=== PATIENT | male | born 1940 | race Caucasian/White ===

== ENCOUNTER 2023-03-04 16:42 | Inpatient (IN) | payer MEDICARE, BC, SELFPAY ==
[2023-03-04] VITALS (13 sets, daily range): BP systolic 154–158; BP diastolic 84–91; PULSE 80–88; RESP 15–22; TEMP 36.4; O2SAT 96–100
--- NOTE | ~2023-03-04 | CT_ITS ---
EXAMINATION: CTA brain carotid DATE: 03/04/2023 21:43 INDICATION: Nuchal rigidity and headache TECHNIQUE: Computed tomographic angiography (CTA) of the head was performed without and with 100 mL O mnipaque-350 intravenous contrast. CTA of the neck was performed with intravenous contrast. The dose- length product was 1803.04 mGy-cm. Maximum intensity projection and volume rendered 3D-reconstruction s were created by the technologist on a separate workstation. Automated exposure control and iterativ e reconstruction technique were employed. COMPARISON: None. FINDINGS: HEAD CTA: There is no acute intraparenchymal hemorrhage. No evidence of mass lesion. No evidence of a cute infarction. There is mild periventricular and subcortical hypodensity probably related to small vessel ischemic disease. There is mild prominence of the sulci and ventricles related to cerebral atr ophy. Intracranial calcified cerebral atherosclerosis is noted. There are no extra-axial collections. There is no mass effect or midline shift. The orbits and soft tissues are unremarkable. The visualiz ed sinuses and mastoid air cells are well aerated. There is no significant stenosis of the basilar artery or posterior cerebral arteries. There is no si gnificant stenosis of the intracranial internal carotid arteries or the anterior or middle cerebral a rteries. The anterior communicating artery and posterior communicating arteries are normal. There is no aneurysm. NECK CTA: Small bilateral thyroid nodules measure up to 5 mm on the left. There is severe cervical sp ondylosis. The submandibular and parotid glands are symmetric. There is no lymphadenopathy. There are no masses identified. The airway is unremarkable. The superior mediastinum is unremarkable. There is 0% stenosis of the proximal right internal carotid artery relative to normal distal artery l umen diameter (NASCET criteria). There is 0% stenosis of the proximal left internal carotid artery re lative to normal distal artery lumen diameter. IMPRESSION: 1. No acute intracranial abnormality. Normal head CTA. 2. 0% stenosis of the proximal right internal carotid artery relative to normal distal artery lumen d iameter (NASCET criteria). 3. 0% stenosis of the proximal left internal carotid artery relative to normal distal artery lumen di ameter. Reviewed, dictated and finalized at location F. BALL GLOVE SHAPER IMPRESSION: 1. No acute intracranial abnormality. Normal head CTA. 2. 0% stenosis of the proximal right internal carotid artery relative to normal distal artery lumen diameter (NASCET criteria). 3. 0% stenosis of the proximal left internal carotid artery relative to normal distal artery lumen diameter.
--- NOTE | ~2023-03-04 | XR_ITS ---
EXAMINATION: XR chest 1V portable INDICATION: Neck pain TECHNIQUE: Portable AP chest at 2044 hours COMPARISON: None available FINDINGS: There are minimal airspace opacities of the lung bases. No pleural effusion or pneumothorax . The cardiomediastinal silhouette is normal. IMPRESSION: 1. Bibasilar airspace opacities, consistent with atelectasis versus pneumonia. Reviewed, dictated and finalized at location F. OSOFT APPLICATION DEVELOPER
--- NOTE | ~2023-03-04 | XR_ITS ---
XR chest 2V 03/08/2023 13:26 Indication: Cough Procedure: 2 view chest Comparison: 03/04/2023 Findings: Bibasilar atelectasis. Heart size normal. No focal pneumonia, edema or pneumothorax. Possib le small effusion. The lungs are hyperinflated which is consistent with, but not diagnostic of chroni c obstructive pulmonary disease. There are lower thoracic wedge compression deformities, likely chron ic. Impression: 1: Bibasilar atelectasis. 2: Possible small pleural effusion. Reviewed, dictated and finalized at location L. E DIRECTOR Impression: 1: Bibasilar atelectasis. 2: Possible small pleural effusion.
--- NOTE | ~2023-03-04 | CT_ITS ---
EXAMINATION: CT cervical spine wo con DATE: 03/04/2023 21:29 INDICATION: Nuchal rigidity, neck stiffness TECHNIQUE: Computed tomography (CT) of the cervical spine was performed without intravenous contrast. The dose-length product (DLP) was 234.01 mGy-cm. Automated exposure control and iterative reconstruc tion technique were employed. COMPARISON: None FINDINGS: There are 2 mm of retrolisthesis of C3 on C4 and C4 on C5. There is severe loss of interver tebral disc space height at C5-6 and C6-7. The cervical vertebral body heights are normal. There is a n age-indeterminate compression fracture of T1 with 30% loss of anterior vertebral body height. The o dontoid process is intact. 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 IMPRESSION: 1. Severe cervical spondylosis without acute findings of the cervical spine. 2. Age indeterminate T1 compression fracture. Reviewed, dictated and finalized at location F. ASTICS COACH OR INSTRUCTOR
--- NOTE | 2023-03-04 19:50 | ECG_ITS ---
Measurements Intervals [place] Rate: 79 P: -2 PA: 147 QRS: 14 QRSD: 98 T: 33 QT: 361 QTc: 414 Interpretive Statements SINUS RHYTHM INCOMPLETE RIGHT BUNDLE BRANCH BLOCK BASELINE ARTIFACT- I, II, III, AVR, AVL, AVF, V1-V2 BORDERLINE ECG NO PREVIOUS ECG AVAILABLE FOR COMPARISON Electronically Signed On 03-05-2023 8:11:14 BILLIARD TABLE REPAIRER by Declan Bahena D.O.
--- NOTE | 2023-03-04 19:56 | ED.GENADULT ---
HPI - General Adult General Chief complaint: Recheck/Abnormal Lab/Rx Stated complaint: sent from urgent care for 3 red flags in neck Time Seen by Provider: 03/04/23 19:31 Source: patient Limitations: no limitations History of Present Illness HPI narrative: Patient is an 82-year-old male presents to the emergency department sent by Urgent Care for neck pain and stiffness. Patient states approximately 3 days ago he developed a discomfort on the posterior left side of his neck with some slight stiffness that the following day became both sides of the back of his neck and has become progressively more stiff over the past few days. Patient denies any preceding injuries or history of this in the past. Patient originally thought that he maybe slept weird on it. Patient states that discomfort is worse with any movements of his head and neck especially flexion or rotation. Patient denies anyone emesis or symptoms to a. Patient took an aspirin this morning and has not taken any other medications. Patient notes that last night he developed a throbbing headache in the back of his head in which she points to the bilateral inferior aspects of the occipital bone that was described as throbbing, better this morning after taking the aspirin, no history of this in the past, denies getting headaches on a regular basis. Patient admits to some possible chills but denies any fever or chills his temperature at home. Patient admits to his significant other having a cough. Patient states that he had a minor cold that ended 1 week ago and when she was having runny nose congestion and cough. Patient denies family history of aneurysms. Patient denies eye pain, vision changes, difficulty swelling, dysphonia, ear pain, hearing changes, numbness, weakness, paresthesias, chest pain, difficulty breathing, abdominal pain, nausea vomiting, diarrhea, melena, hematochezia, urinary discomfort, use of blood thinners, jaw pain, history of blood clots, history of bleeding disorders. Patient denies any confusion. Related Data Allergies Allergy/AdvReac Type Severity Reaction Status Date / Time No Known Allergies Allergy Verified 03/04/23 16:44 Review of Systems Review of Systems: A 10 system review of systems was completed on the patient and is negative except for what is stated in the HPI. Nursing and ancillary documentation was reviewed. PMFSH Comments At time of signature, I have reviewed and agree with nursing past medical, surgical, social and family history unless otherwise noted. Please see the nursing chart for further information. There is no relevant family history pertinent to the presenting complaint. Exam Narrative: CONST: No acute distress. Well nourished. Patient is sitting upright with his neck in a neutral position and not wanting to move his neck. HENMT: Head is normocephalic and atraumatic. Moist mucous membranes. No posterior oropharynx erythema. Bilateral tympanic membranes are nonerythematous and without bulging. Bilateral ear canals are without erythema. No mastoid process tenderness palpation. EYES: No conjunctival icterus, injection, or pallor. PERRL. Extraocular motions intact. NECK: Nuchal rigidity is present, patient is unable to flex his neck without having significant increase in his pain. No carotid bruits on auscultation bilaterally. No palpable thyromegaly or thyroid tenderness to palpation. RESP: Able to speak in full sentences. Normal respiratory effort. CTAB. CARDIO: Regular rate. Regular rhythm. 2+ DP and radial pulses bilaterally. GI: Nondistended. No tenderness to palpation. Soft. : No CVA tenderness to palpation. SKIN: No rashes or lesions noted on exposed skin. NEURO: Oriented x3. Moves all extremities. Cranial nerves 2-12 intact. No focal neurological deficits. Sensation intact to light touch throughout all 4 extremities. Speech is clear and fluent. No nystagmus. Gaze is midline. Gait is stable. EXTREM/MSK/BACK: No
[2023-03-04 20:48] LABS: Basophils Absolute Auto 0.1 K/mm3 (0.0-0.1); Basophils Percent Auto 0.3 % (0.2-1.2); Eosinophils Absolute Auto 0.1 K/mm3 (0-0.3); Eosinophils Percent Auto 0.5 % (0-4.4); Hematocrit 51.2 % (42.0-52.0); Immature Granulocyte Absolute 0.16 K/mm3 (0.00-0.031); Immature Granulocyte Percent A 0.8 % (0-0.5); Lymphocytes Absolute Auto 1.25 K/mm3 (0.9-3.2); Lymphocytes Percent Auto 5.9 % (18.3-44.2); Mean Corpuscular HGB Conc 31.3 g/dl (32-36); Mean Corpuscular Hemoglobin 28.4 pg (26-34); Mean Corpuscular Volume 90.9 fl (80-100); Monocytes Percent Auto 9.6 % (2.6-8.5); Neutrophils Absolute Auto 17.6 K/mm3 (1.3-6.7); Neutrophils Percent Auto 82.9 % (45.5-73.1); Platelet Count Result 783 k/mm3 (150-375); Red Blood Count 5.63 M/mm3 (4.6-6.20); Red Cell Distribution Width 17.2 % (11.5-14.5); White Blood Count 21.2 K/mm3 (4.5-10.0)
[2023-03-04 20:58] LABS: Prothrombin Time 13.8 Seconds (11.1-14.7)
[2023-03-04 20:59] LABS: Alanine Aminotransferase 33 U/L (6-50); Albumin Level 4.3 g/dL (3.5-5.1); Alkaline Phosphatase 119 U/L (38-126); Anion Gap 11 mmol/L (8-16); Aspartate Amino Transferase 32 U/L (17-59); Blood Urea Nitrogen 22 mg/dL (9-20); Calcium 9.6 mg/dL (8.4-10.2); Carbon Dioxide 27 mmol/L (22-30); Chloride 101 mmol/L (98-107); Estimated CRCL calculation 59 ml/min; Estimated Glomerular Filt Rate > 60; Glucose 98 mg/dL (65-110); Partial Thromboplastin Time 48.4 SECONDS (22.3-36.8); Potassium 4.4 mmol/L (3.4-5.0); Sodium 139 mmol/L (137-145)
[2023-03-04 21:02] LABS: CRP 7.1 mg/dL (<1.0); Creatine Kinase 65 U/L (55-170)
[2023-03-04] MEDS: SODIUM CHLORIDE 0.9% IV 500 ML 999 ML IV CONT (21:08)
[2023-03-04 21:11] LABS: Troponin I < 0.012 ng/mL (0.000-0.034)
[2023-03-04 21:16] LABS: Procalcitonin 0.2 ng/mL
[2023-03-04 21:23] LABS: Influenza A QL RT-PCR Negative (Negative); Influenza B QL RT-PCR Negative (Negative); RSV RNA, RT-PCR Negative (Negative); SARS-CoV-2 RNA PCR Negative (Negative)
[2023-03-04 23:32] LABS: Appearance Urine Clear (Clear); Bilirubin Urine Negative (Negative); Blood Urine Negative (Negative); Color Urine Yellow (Yellow); Glucose Urine UA Negative (Negative); Ketones Urine 1+ mg/dL (Negative); Leukocyte Esterase Ur Negative LEU/UL (Negative); Nitrate Urine Negative (Negative); Protein Urine Negative (Negative); pH Urine 6.5 (5.0-9.0)
[2023-03-05] VITALS (19 sets, daily range): BP systolic 125–178; BP diastolic 68–87; PULSE 76–90; RESP 11–20; TEMP 36.3–36.6; O2SAT 96–99; BMI 20.1
[2023-03-05 00:01] LABS: Specific Grav Ur 1.065 (1.001-1.035)
[2023-03-05 00:20] LABS: Add Urine Microscopic? NO
[2023-03-05] MEDS: AMPICILLIN 2 GM/NS 100 ML 2 GM/100 ML BAG IVPB ×6 (00:53→20:26)
[2023-03-05 01:41] LABS: Appearance CSF Clear (Clear); CSF source CSF; Color CSF Colorless (Colorless); Nucleated Cell CSF 1 /uL (0-5); Red Blood Cell CSF 1.1 (0-2)
[2023-03-05 01:42] LABS: Lymphocytes CSF 50 % (40-80)
[2023-03-05 01:43] LABS: Neutrophils CSF 50 % (0-6)
[2023-03-05] MEDS: MORPHINE SULFATE (*CRX) 4 MG/ML INJ IV PUSH (01:44)
[2023-03-05 02:16] LABS: Glucose CSF 60 mg/dL (40-70); Total Protein CSF 38 mg/dL (12-60)
[2023-03-05] MEDS: SODIUM CHLORIDE 0.9% IV 1,000 ML 125 ML IV CONT ×2 (02:26→12:50)
[2023-03-05] MEDS: cefTRIAXone 2 GM/NS 100 ML 2 GM/100 ML BAG IVPB ×2 (02:30→14:03)
[2023-03-05] MEDS: VANCOMYCIN 2,000 MG/NS 500 ML 2,000 MG/500 ML BAG 250 MG IVPB (03:19)
--- NOTE | 2023-03-05 03:52 | ADMGEN ---
This patient, Jadon Rajan, was admitted to Medical Room 241-. Patient/family oriented to hospital policies and general routines including ID bracelet, bed and alarms, visiting hours, pain management, procedures, bathroom and other care routines, personal items, smoking policy, room service/diet, and visiting hours. Information on how to activate the Rapid Response Team has been discussed. Patient/Family are encouraged to report perceived risks to care and to ask questions if they do not understand what they are told or what they should do.
[2023-03-05 05:33] LABS: Lactic Acid Reflex 0.9 mmol/L (0.7-2.0)
[2023-03-05] MEDS: SODIUM CHLOR 3% 15 ML NEB (RESPIRATORY THERAPY) 6 ML INHALATION (05:50)
--- NOTE | 2023-03-05 06:33 | PCRCNOTE ---
Patient was unable to produce sputum during induction.
--- NOTE | 2023-03-05 09:45 | PM.IMHP ---
H&P: HPI History of Present Illness Date/Time: 03/05/23 09:45 Chief Complaint: Neck pain Narrative: 82yo healthy male who presents with neck pain. About 4 days prior to admission, patient developed neck pain. Began in the morning after waking up. Describes as sharp, posterior associated with any movement. No trauma. He initially thought he 'slept funny'. No recent URI symptoms, sore throat, cold sores. He did have a cough about 9 days ago. He took Robitussin and this symptom has resolved. His has been sick with cold symptoms but she was negative for COVID. Next few days, patient's neck pain worsened where he had difficulty moving his head in any direction. Overnight on the night prior to admission, he developed a ?pulsating occipital headache. He was up all night because of the pain. He took aspirin in the morning with little benefit. The neck pain radiated anteriorly. He has had prior neck pain in the past but this pain felt much different. He denies fevers but does feel subjectively warm. He was having shaking chills. No odynophagia or dysphagia. No vision changes. He has chronic hearing loss. No nausea or vomiting. No chest pain, palpitations, shortness of breath or residual cough. No dysuria or hematuria. No numbness, tingling or weakness in his hands or feet. He presented to the urgent care center but was told to go to the emergency room. Patient presented the emergency room for evaluation. In the ED, patient's blood pressure was elevated at 158/91 otherwise vital signs were normal. White count was 21K with a left shift and platelet count 783K. PT/INR normal but PTT was 48. CMP was normal. Lactic acid was 0.9. Troponin negative. CRP 7.1. Procalcitonin 0.2. TSH normal. Urine was clear. Influenza, RSV and COVID PCR were negative. Chest x-ray showed bibasilar airspace opacities atelectasis versus pneumonia. CTA of the head neck showed no acute intracranial abnormalities. Normal head CTA. He had 0% stenosis of the bilateral proximal internal carotid arteries. Cervical spine CT showed severe cervical spondylosis without acute findings of the cervical spine. He has age indeterminate T1 compression fracture. Patient underwent lumbar puncture which showed 1 red cell and 1 white cell. 50% neutrophils and 50% lymphocytes. Glucose was 60 and total protein 38. He was started on vancomycin, Rocephin, ampicillin and acyclovir. Was given IV fluids and dexamethasone ED. he was admitted for further care. He feels better today. Review of Systems Review of Systems: All systems reviewed & are unremarkable except as noted in HPI and below PMFSH Past Medical History Medical History (Updated 03/05/23 @ 10:04 by Mane Pleitez MD) Borderline hyperlipidemia Surgical History Surgical History (Updated 03/05/23 @ 09:59 by Mane Pleitez MD) H/O hernia repair Family History Family History Mother Colon cancer Other Acute myocardial infarction Social History Social History (Updated 03/05/23 @ 10:00 by Mane Pleitez MD) Social History: He lives at home with his . Lifelong nonsmoker. Drinks 1 alcoholic drink per week on average. Denies drug use. He is a full code. He nominates his to be the individual who would make medical decisions for him if he is unable. He has a dog and a cat at home. Smoking status: Never smoker Alcohol intake: never Drinks per week: 1 Substance use: never Do You Feel Safe in your Home?: Yes Lack of Transportation: No Lack of Food: Never True Current Housing: I Have Housing Concerned About Future Housing: No Difficulty Paying Gas/Electric Bills: No Difficulty Paying for Meds: No Currently Unemployed: No Education: Associate Degree Difficulty w/ Childcare or Family Care: No Spiritual care concerns: No Meds Home Medications and Allergies Home Medications Me
--- NOTE | 2023-03-05 11:12 | WPDNEURCNPN ---
Assessment and Plan Assessment and plan (1) Leukocytosis: Code(s): D72.829 - Elevated white blood cell count, unspecified Status: Acute (2) Nuchal rigidity: Code(s): R29.1 - Meningismus Status: Acute Plan Mr. Rajan is an 82 year old male with five days history of neck pain/stiffness and more recently occipital headache. Lab work significant for infectious process with WBC being elevated as well as inflammatory markers. No obvious source of infection -- UA and CXR unremarkable. LP with only cell count of 1 (with 50% neutrophils) and normal CSF protein. He has been started on meningitic antibiotics and acyclovir empirically. Preliminary CSF culture negative for any organism so far. - Agree with acyclovir and antibiotics for now - CSF culture and other infectious studies pending Consult date: 03/05/23 Reason for consult: Meningitis HPI: Jadon Rajan is a 82 year old male with a history of HLD presenting with neck stiffness. Patient presented due to a four day history of neck pain that stared with waking up, located in richard posterior region. On the night prior to presentation, he developed an occipital headache that he described as pulsating. He presented to [place] ED where his blood pressure was in the 150s systolic. Blood work was significant with WBC 21 with left shift and elevated plt of 783. CTA brain/carotid did not show any acute process or significant stenosis. CT cervical spine showed severe cervical spondylosis but no acute findings. Lumbar puncture was done in the ER which showed cell count of only 1, but with 50% neutrophil, protein normal at 38, and glucose was 60. Preliminary CSF culture is negative. He was started on acyclovir, ampicillin, Rocephin, vancomycin, as well as dexamethasone. Since admission, patient feels that his neck stiffness is a lot better. He can turn his head now which he could not do for the past few days. Review of Systems Review of Systems: All systems reviewed & are unremarkable except as noted in HPI and below PMFSH Past Medical History Medical History Borderline hyperlipidemia Surgical History Surgical History H/O hernia repair Family History Family History Mother Colon cancer Other Acute myocardial infarction Social History Social History Social History: He lives at home with his . Lifelong nonsmoker. Drinks 1 alcoholic drink per week on average. Denies drug use. He is a full code. He nominates his to be the individual who would make medical decisions for him if he is unable. He has a dog and a cat at home. Smoking status: Never smoker Alcohol intake: never Drinks per week: 1 Substance use: never Do You Feel Safe in your Home?: Yes Lack of Transportation: No Lack of Food: Never True Current Housing: I Have Housing Concerned About Future Housing: No Difficulty Paying Gas/Electric Bills: No Difficulty Paying for Meds: No Currently Unemployed: No Education: Associate Degree Difficulty w/ Childcare or Family Care: No Spiritual care concerns: No Meds Home Medications and Allergies Home Medications Medication Instructions Recorded Confirmed Type multivitamin 1 tablet PO DAILY 03/05/23 03/05/23 History vitamin B complex (B 1 tablet PO DAILY 03/05/23 03/05/23 History Complex-Vitamin B12 tablet) Allergies Allergy/AdvReac Type Severity Reaction Status Date / Time No Known Allergies Allergy Verified 03/05/23 04:35 Vital Signs Vital Signs - 24 hr 03/04/23 16:50 03/04/23 21:14 03/04/23 21:15 Temperature 36.4 C L Pulse Rate 80 83 80 Respiratory Rate 18 17 15 Blood Pressure 158/91 H Pulse Oximetry 99 99 100 Oxygen Delivery Room Air 03/04/23 21:16 03/04/23 21:39
[2023-03-05] MEDS: MULTIVITAMINS THERAPEUTIC TAB (*BKC) 1 TABLET PO (12:54)
[2023-03-05] MEDS: VITAMIN B COMPLEX CAPSULE 1 CAP PO (12:55)
[2023-03-06] MEDS: AMPICILLIN 2 GM/NS 100 ML 2 GM/100 ML BAG IVPB ×6 (01:40→21:04)
[2023-03-06] MEDS: cefTRIAXone 2 GM/NS 100 ML 2 GM/100 ML BAG IVPB ×2 (02:12→13:07)
[2023-03-06] MEDS: VANCOMYCIN 1,250 MG/NS 250 ML 1,250 MG/250 ML BAG 166.67 MG IVPB (02:45)
[2023-03-06 03:30] VITALS: BP 108/64; PULSE 65; RESP 16; TEMP 36.8; O2SAT 94
[2023-03-06] MEDS: SODIUM CHLORIDE 0.9% IV 1,000 ML 125 ML IV CONT (05:00)
[2023-03-06] MEDS: SODIUM CHLOR 3% 15 ML NEB (RESPIRATORY THERAPY) 6 ML INHALATION (05:08)
[2023-03-06 05:13] VITALS: PULSE 67; RESP 18
[2023-03-06 05:14] VITALS: PULSE 67; RESP 18; O2SAT 96
[2023-03-06 05:19] LABS: Basophils Percent Auto 0.2 % (0.2-1.2); Hematocrit 45.2 % (42.0-52.0); Immature Granulocyte Absolute 0.32 K/mm3 (0.00-0.031); Immature Granulocyte Percent A 1.2 % (0-0.5); Lymphocytes Absolute Auto 0.62 K/mm3 (0.9-3.2); Lymphocytes Percent Auto 2.4 % (18.3-44.2); Mean Corpuscular Volume 90.4 fl (80-100); Mean Platelet Volume 10.3 fl (7.4-10.4); Monocytes Absolute Auto 0.6 K/mm3 (0.1-0.6); Monocytes Percent Auto 2.4 % (2.6-8.5); Neutrophils Absolute Auto 24.7 K/mm3 (1.3-6.7); Neutrophils Percent Auto 93.8 % (45.5-73.1); Platelet Count Result 610 k/mm3 (150-375); Red Cell Distribution Width 16.3 % (11.5-14.5); White Blood Count 26.3 K/mm3 (4.5-10.0)
--- NOTE | 2023-03-06 05:20 | PCRCNOTE ---
Unable to obtain a sputum sample from patient on 03/06/23. Pt only coughed up phlegm, not sputum. Sample will attempt to be obtained on 03/07/23.
[2023-03-06 05:30] LABS: Alanine Aminotransferase 19 U/L (6-50); Albumin Level 2.8 g/dL (3.5-5.1); Alkaline Phosphatase 89 U/L (38-126); Anion Gap 4 mmol/L (8-16); Aspartate Amino Transferase 28 U/L (17-59); Bilirubin,Total 0.3 mg/dL (0.2-1.3); Blood Urea Nitrogen 24 mg/dL (9-20); Carbon Dioxide 24 mmol/L (22-30); Chloride 108 mmol/L (98-107); Estimated CRCL calculation 56 ml/min; Estimated Glomerular Filt Rate > 60; Glucose 160 mg/dL (65-110); Potassium 4.1 mmol/L (3.4-5.0); Sodium 136 mmol/L (137-145)
[2023-03-06] MEDS: MULTIVITAMINS THERAPEUTIC TAB (*BKC) 1 TABLET PO (08:59)
[2023-03-06] MEDS: VITAMIN B COMPLEX CAPSULE 1 CAP PO (08:59)
[2023-03-06] MEDS: ENOXAPARIN 40 MG/0.4 ML SYRINGE SUB-Q (09:00)
--- NOTE | 2023-03-06 09:42 | WPDNEUROPN ---
Progress Note: A&P Assessment and Plan (1) Leukocytosis: Code(s): D72.829 - Elevated white blood cell count, unspecified Status: Acute (2) Nuchal rigidity: Code(s): R29.1 - Meningismus Status: Acute Plan Mr. Rajan is an 82 year old male with five days history of neck pain/stiffness and more recently occipital headache. Lab work significant for infectious process with WBC being elevated as well as inflammatory markers. No obvious source of infection -- UA and CXR unremarkable. LP with only cell count of 1 (with 50% neutrophils) and normal CSF protein. He has been started on meningitic antibiotics and acyclovir empirically. Preliminary CSF culture negative for any organism so far. Neck pain may be musculoskeletal in etiology. - Continue antibiotics for now, will likely discontinue if cultures come back negative Subjective Date/time seen: 03/06/23 09:42 Interval history: Jadon Rajan is a 82 year old male with a history of HLD presenting with neck stiffness. Patient presented due to a four day history of neck pain that stared with waking up, located in richard posterior region. On the night prior to presentation, he developed an occipital headache that he described as pulsating. He presented to [place] ED where his blood pressure was in the 150s systolic. Blood work was significant with WBC 21 with left shift and elevated plt of 783. CTA brain/carotid did not show any acute process or significant stenosis. CT cervical spine showed severe cervical spondylosis but no acute findings. Lumbar puncture was done in the ER which showed cell count of only 1, but with 50% neutrophil, protein normal at 38, and glucose was 60. Preliminary CSF culture is negative. He was started on acyclovir, ampicillin, Rocephin, vancomycin, as well as dexamethasone. Since admission, patient feels that his neck stiffness is a lot better. He can turn his head now which he could not do for the past few days. WBC is up today 26.9 from 21 (patient is on decadron). CRP is down to 4 from 7.1. No fevers documented. Review of Systems Review of Systems: All systems reviewed & are unremarkable except as noted in HPI and below Exam Const: General: comfortable and no acute distress HENMT: Mouth: Yes moist mucous membranes Eyes: Pupils: Equal, round and reactive pupils present EOM: EOMs intact bilaterally Resp: Effort & Inspection: normal respiratory effort Skin: General skin exam: normal color Neuro: Other: AOx3, Pupils equal and reactive bilaterally, EOMI, face symmetric, facial sensation intact, tongue protrudes midline, palate midline. Shoulder shrug normal. Strength 5/5 throughout. Sensation intact throughout. FNF normal bilaterally. Language comprehension and fluency intact. Gait deferred. Extrem: General: normal to inspection Psych: Mental Status: mental status grossly normal Affect: normal affect Objective Data Vital Signs Vital Signs: Vital Signs - 24 hr 03/05/23 14:00 03/05/23 19:56 03/06/23 03:30 Temperature 36.5 C 36.3 C L 36.8 C Pulse Rate 83 85 65 Respiratory Rate 20 16 16 Blood Pressure 125/72 140/68 108/64 Pulse Oximetry 97 97 94 Oxygen Delivery Fraction of Inspired Oxygen 03/06/23 05:13 03/06/23 05:14 03/06/23 08:00 Temperature Pulse Rate 67 67 Respiratory Rate 18 18 Blood Pressure Pulse Oximetry 96 Oxygen Delivery Room Air Room Air Fraction of Inspired Oxygen 21 Intake/Output Intake/Output: Intake & Output 03/03/23 03/04/23 03/05/23 03/06/23 23:59 23:59 23:59 23:59 Intake Total 500 3275.9 2625.3 Output Total 400 Balance 500 2875.9 2625.3 Meds/Results Medications: Active Medications Generic Name Dose Route Start Last Admin Trade Name Freq PRN Reason Stop Dose Admin Dexamethasone Sodium Phosphate 11.5 mg 03/04/23 08:00 03/06/23 08:59 Dexamethasone Sod Phos Inj 10 Mg/Ml 1 Ml Vial 0.15 mg/kg (11.5 mg) 11.5 mg IV PUSH Administration Q6
--- NOTE | 2023-03-06 12:32 | PM.IMPN ---
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 No fevers documented but he has felt subjectively warm and with chills. CRP is mildly elevated at 7. Procalcitonin level is low. White count is elevated on admission. CXR findings noted but exam is clear and his cough has resolved making pneumonia less likely. LP findings do not point to a fulminate inflammatory process. BCx NGTD Continue antibacterial and antiviral therapy while we await culture results. Neurology following and appreciate their input. WBC higher but on steroids. Will stop steroids. Follow white count. Will monitor his clinical improvement with this treatment. (2) Leukocytosis: Code(s): D72.829 - Elevated white blood cell count, unspecified Status: Acute Assessment and Plan: As above Plan DVT prophylaxis -Lovenox Code status - Full Subjective Date/time seen: 03/06/23 12:32 Interval history: 82yo healthy male who presents with neck pain.?? No chest pain or shortness of breath. Neck pain is 1/10. No nausea or vomiting. Improved range of motion of the neck Exam Narrative: AF 98.2 108/64 67 18 96% ra Gen - NARD sitting up in the chair Neck - ROM of neck better Chest - CTA bilaterally, nml RR CV - RRR S1/S2 Abd - soft. NT/ND. +BS Ext - no pedal edema. Neuro - patient is alert and oriented. nonfocal. speech clear Psych - normal mood and affect. Patient is pleasant and cooperative. Skin - warm and dry. No rashes noted. Objective Data Vital Signs Vital Signs: Vital Signs - 24 hr 03/05/23 14:00 03/05/23 19:56 03/06/23 03:30 Temperature 97.7 F 97.3 F L 98.2 F Pulse Rate 83 85 65 Respiratory Rate 20 16 16 Blood Pressure 125/72 140/68 108/64 Pulse Oximetry 97 97 94 Oxygen Delivery Fraction of Inspired Oxygen 03/06/23 05:13 03/06/23 05:14 03/06/23 08:00 Temperature Pulse Rate 67 67 Respiratory Rate 18 18 Blood Pressure Pulse Oximetry 96 Oxygen Delivery Room Air Room Air Fraction of Inspired Oxygen 21 Intake/Output Intake/Output: Intake & Output 03/03/23 03/04/23 03/05/23 03/06/23 23:59 23:59 23:59 23:59 Intake Total 500 3275.9 2625.3 Output Total 400 Balance 500 2875.9 2625.3 Meds/Results Medications: Active Medications Generic Name Dose Route Start Last Admin Trade Name Freq PRN Reason Stop Dose Admin Dexamethasone Sodium Phosphate 11.5 mg 03/04/23 08:00 03/06/23 08:59 Dexamethasone Sod Phos Inj 10 Mg/Ml 1 Ml Vial 0.15 mg/kg (11.5 mg) 11.5 mg IV PUSH Administration Q6H BRANDON Enoxaparin Sodium 40 mg 03/05/23 10:10 03/06/23 09:00 Enoxaparin 40 Mg/0.4 Ml Syringe SUB-Q 40 mg DAILY BRANDON Administration Ceftriaxone Sodium 2 gm in 100 mls @ 200 mls/hr 03/05/23 14:00 03/06/23 02:42 Rocephin 2 Gm/Ns 100 Ml IVPB Infused Q12H BRANDON Infusion Ampicillin Sodium 2 gm in 100 mls @ 200 mls/hr 03/05/23 05:00 03/06/23 08:58 Ampicillin 2 Gm/Ns 100 Ml IVPB 200 mls/hr Q4HR BRANDON Administration Vancomycin HCl 1,250 mg in 250 mls @ 166.667 mls/hr 03/06/23 02:00 03/06/23 04:15 Vancomycin 1,250 Mg/Ns 250 Ml IVPB Infused Q24H BRANDON Infusion Acyclovir Sodium 765 mg/ 265.3 mls @ 250 mls/hr 03/05/23 09:00 03/06/23 08:58 Dextrose IVPB 250 mls/hr Q8H BRANDON Administration Morphine Sulfate 2 mg 03/05/23 01:41 Morphine Sulfate (*Crx) 2 Mg/Ml Inj IV PUSH Q2H PRN Pain Rated 7-10 Multivitamins Therapeutic 1 tablet 03/05/23 10:10 03/06/23 08:59 Multivitamins Therapeutic Tab (*Bkc) PO 1 tablet DAILY BRANDON Administration Sodium Chloride 6 ml 03/05/23 05:00 03/06/23 05:08 Sodium Chlor 3% 15 Ml Neb (Respiratory Therapy) INHALATION 03/07/23 05:01 6 ml DAILY@0500 BRANDON Administration Vitamin B
[2023-03-06 14:00] VITALS: BP 146/71; PULSE 76; RESP 20; TEMP 36.3; O2SAT 99
[2023-03-06 19:38] VITALS: BP 130/69; PULSE 73; RESP 17; TEMP 36.8; O2SAT 100
[2023-03-07] MEDS: AMPICILLIN 2 GM/NS 100 ML 2 GM/100 ML BAG IVPB ×6 (00:54→21:33)
[2023-03-07] MEDS: VANCOMYCIN 1,500 MG/NS 500 ML 1,500 MG/500 ML BAG 200 MG IVPB ×2 (03:15→21:34)
[2023-03-07] MEDS: cefTRIAXone 2 GM/NS 100 ML 2 GM/100 ML BAG IVPB ×2 (03:15→13:10)
[2023-03-07 05:01] LABS: Basophils Percent Auto 0.2 % (0.2-1.2); Hemoglobin 13.7 g/dL (14.0-18.0); Immature Granulocyte Absolute 0.26 K/mm3 (0.00-0.031); Lymphocytes Absolute Auto 0.79 K/mm3 (0.9-3.2); Mean Corpuscular HGB Conc 31.1 g/dl (32-36); Mean Platelet Volume 10.1 fl (7.4-10.4); Monocytes Absolute Auto 1.5 K/mm3 (0.1-0.6); Monocytes Percent Auto 5.8 % (2.6-8.5); Platelet Count Result 607 k/mm3 (150-375); Red Blood Count 4.89 M/mm3 (4.6-6.20); Red Cell Distribution Width 16.2 % (11.5-14.5); White Blood Count 26.6 K/mm3 (4.5-10.0)
[2023-03-07 05:11] LABS: Anion Gap 4 mmol/L (8-16); Blood Urea Nitrogen 24 mg/dL (9-20); Calcium 7.8 mg/dL (8.4-10.2); Carbon Dioxide 25 mmol/L (22-30); Chloride 107 mmol/L (98-107); Estimated CRCL calculation 56 ml/min; Estimated Glomerular Filt Rate > 60; Glucose 125 mg/dL (65-110); Potassium 3.9 mmol/L (3.4-5.0); Sodium 136 mmol/L (137-145)
[2023-03-07 05:21] VITALS: PULSE 74; RESP 18
[2023-03-07] MEDS: SODIUM CHLOR 3% 15 ML NEB (RESPIRATORY THERAPY) 6 ML INHALATION (05:22)
[2023-03-07 05:31] VITALS: BP 121/74; PULSE 61; RESP 18; TEMP 36.6; O2SAT 95
[2023-03-07 05:49] LABS: Platelet Estimate Increased (Adequate)
[2023-03-07 05:50] LABS: Burr Cells 1+ (NORMAL); Schistocytes None Seen (NORMAL)
[2023-03-07] MEDS: VITAMIN B COMPLEX CAPSULE 1 CAP PO (07:57)
[2023-03-07] MEDS: ENOXAPARIN 40 MG/0.4 ML SYRINGE SUB-Q (07:57)
[2023-03-07] MEDS: MULTIVITAMINS THERAPEUTIC TAB (*BKC) 1 TABLET PO (07:57)
--- NOTE | 2023-03-07 11:11 | PM.IMPN ---
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 No fevers documented but he has felt subjectively warm and with chills. CRP is mildly elevated at 7. Procalcitonin level is low. White count to 21K on admission. CXR findings noted but exam is clear and his cough has resolved making pneumonia less likely. Cervical spine CT showing severe cervical spondylosis without acute findings and age indeterminate T1 compression fracture. CTA head/neck - no acute intracranial abnormalities and no stenosis. LP 1RBC/1WBC, 50% neutrophils, 50% lymphocytes. Normal glucose and protein. CSF culture negative to date. BCx positive for Staph hominis felt to be a contaminate Continue antibacterial and antiviral therapy while we await culture results. Neurology following and appreciate their input. WBC higher but was on steroids so steroids stopped. Follow white count. Will monitor his clinical improvement with this treatment. (2) Leukocytosis: Code(s): D72.829 - Elevated white blood cell count, unspecified Status: Acute Assessment and Plan: As above (3) Bacteremia: Code(s): R78.81 - Bacteremia Status: Acute Assessment and Plan: As above [place] be contaminant. Plan DVT prophylaxis -Lovenox Code status - Full Subjective Date/time seen: 03/07/23 11:11 Interval history: 82yo healthy male who presents with neck pain.?? No pain with range of motion of the neck. No nausea, vomiting or diarrhea. No chest pain. No shortness of breath. No sore throat. Exam Narrative: AF 97.9 121/74 61 18 95% ra Gen - NARD sitting up in the chair Neck -normal range of motion of the neck. No dominant adenopathy, edema or mass. Chest - CTA bilaterally, nml RR CV - RRR S1/S2 Abd - soft. NT/ND. +BS Ext - no pedal edema. Psych - normal mood and affect. Skin - warm and dry. No rashes noted. Objective Data Vital Signs Vital Signs: Vital Signs - 24 hr 03/06/23 14:00 03/06/23 19:38 03/07/23 05:21 Temperature 97.4 F L 98.2 F Pulse Rate 76 73 74 Respiratory Rate 20 17 18 Blood Pressure 146/71 H 130/69 Pulse Oximetry 99 100 Oxygen Delivery 03/07/23 05:31 03/07/23 08:10 Temperature 97.9 F Pulse Rate 61 Respiratory Rate 18 Blood Pressure 121/74 Pulse Oximetry 95 Oxygen Delivery Room Air Intake/Output Intake/Output: Intake & Output 03/04/23 03/05/23 03/06/23 03/07/23 23:59 23:59 23:59 23:59 Intake Total 500 3275.9 4385.9 1320.6 Output Total 400 Balance 500 2875.9 4385.9 1320.6 Meds/Results Medications: Active Medications Generic Name Dose Route Start Last Admin Trade Name Freq PRN Reason Stop Dose Admin Enoxaparin Sodium 40 mg 03/05/23 10:10 03/07/23 07:57 Enoxaparin 40 Mg/0.4 Ml Syringe SUB-Q 40 mg DAILY BRANDON Administration Ceftriaxone Sodium 2 gm in 100 mls @ 200 mls/hr 03/05/23 14:00 03/07/23 03:45 Rocephin 2 Gm/Ns 100 Ml IVPB Infused Q12H BRANDON Infusion Ampicillin Sodium 2 gm in 100 mls @ 200 mls/hr 03/05/23 05:00 03/07/23 08:26 Ampicillin 2 Gm/Ns 100 Ml IVPB Infused Q4HR BRANDON Infusion Acyclovir Sodium 765 mg/ 265.3 mls @ 250 mls/hr 03/05/23 09:00 03/07/23 09:00 Dextrose IVPB Infused Q8H BRANDON Infusion Vancomycin HCl 1,500 mg in 500 mls @ 250 mls/hr 03/07/23 03:00 03/07/23 03:15 Vancomycin 1,500 Mg/Ns 500 Ml IVPB 200 mls/hr Q18H BRANDON Administration Morphine Sulfate 2 mg 03/05/23 01:41 Morphine Sulfate (*Crx) 2 Mg/Ml Inj IV PUSH Q2H PRN Pain Rated 7-10 Multivitamins Therapeutic 1 tablet 03/05/23 10:10 03/07/23 07:57 Multivitamins Therapeutic Tab (*Bkc) PO 1 tablet DAILY BRANDON Administration Vitamin B Complex 1 cap 03/05/23 10:10 03/07/23 07:57 Vitamin B Complex
[2023-03-07 12:17] LABS: Hematocrit 44.6 % (42.0-52.0); Hemoglobin 14.4 g/dL (14.0-18.0); Mean Corpuscular HGB Conc 32.3 g/dl (32-36); Mean Corpuscular Hemoglobin 28.7 pg (26-34); Mean Platelet Volume 10.1 fl (7.4-10.4); Platelet Count Result 605 k/mm3 (150-375); Red Blood Count 5.01 M/mm3 (4.6-6.20); Red Cell Distribution Width 16.5 % (11.5-14.5); White Blood Count 22.3 K/mm3 (4.5-10.0)
[2023-03-07 12:32] LABS: Anion Gap 3 mmol/L (8-16); Blood Urea Nitrogen 23 mg/dL (9-20); Calcium 8.1 mg/dL (8.4-10.2); Carbon Dioxide 30 mmol/L (22-30); Chloride 104 mmol/L (98-107); Estimated CRCL calculation 51 ml/min; Estimated Glomerular Filt Rate > 60; Glucose 99 mg/dL (65-110); Potassium 3.8 mmol/L (3.4-5.0); Sodium 137 mmol/L (137-145)
[2023-03-07 14:00] VITALS: BP 133/74; PULSE 66; RESP 16; TEMP 36.6; O2SAT 98
[2023-03-07 20:08] VITALS: BP 129/68; PULSE 74; RESP 18; TEMP 37; O2SAT 95
[2023-03-08] MEDS: AMPICILLIN 2 GM/NS 100 ML 2 GM/100 ML BAG IVPB ×6 (00:20→22:09)
[2023-03-08] MEDS: cefTRIAXone 2 GM/NS 100 ML 2 GM/100 ML BAG IVPB ×2 (01:49→14:36)
[2023-03-08 03:01] VITALS: BP 132/75; PULSE 78; RESP 20; TEMP 36.4; O2SAT 93
[2023-03-08] MEDS: MORPHINE SULFATE (*CRX) 2 MG/ML INJ IV PUSH (03:46)
[2023-03-08 05:38] LABS: Basophils Percent Auto 0.2 % (0.2-1.2); Eosinophils Percent Auto 0.2 % (0-4.4); Hematocrit 45.9 % (42.0-52.0); Hemoglobin 14.2 g/dL (14.0-18.0); Immature Granulocyte Absolute 0.12 K/mm3 (0.00-0.031); Immature Granulocyte Percent A 0.7 % (0-0.5); Lymphocytes Absolute Auto 0.98 K/mm3 (0.9-3.2); Lymphocytes Percent Auto 5.5 % (18.3-44.2); Mean Corpuscular HGB Conc 30.9 g/dl (32-36); Mean Corpuscular Volume 90.4 fl (80-100); Monocytes Absolute Auto 1.9 K/mm3 (0.1-0.6); Monocytes Percent Auto 10.7 % (2.6-8.5); Neutrophils Absolute Auto 14.8 K/mm3 (1.3-6.7); Neutrophils Percent Auto 82.7 % (45.5-73.1); Platelet Count Result 585 k/mm3 (150-375); Red Blood Count 5.08 M/mm3 (4.6-6.20); Red Cell Distribution Width 16.6 % (11.5-14.5); White Blood Count 17.9 K/mm3 (4.5-10.0)
[2023-03-08 05:47] LABS: Estimated CRCL calculation 51 ml/min; Estimated Glomerular Filt Rate > 60
[2023-03-08] MEDS: VITAMIN B COMPLEX CAPSULE 1 CAP PO (08:52)
[2023-03-08] MEDS: MULTIVITAMINS THERAPEUTIC TAB (*BKC) 1 TABLET PO (08:52)
[2023-03-08] MEDS: SACCHAROMYCES BOULARDII 250 MG CAPSULE PO ×3 (08:52→18:59)
[2023-03-08] MEDS: ENOXAPARIN 40 MG/0.4 ML SYRINGE SUB-Q (08:53)
--- NOTE | 2023-03-08 09:25 | PM.IMPN ---
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 No fevers documented but he has felt subjectively warm and with chills. CRP mildly elevated at 7. Procalcitonin level is low. White count to 21K on admission. CXR findings noted but exam is clear and his cough has resolved making pneumonia less likely. Cervical spine CT showing severe cervical spondylosis without acute findings and age indeterminate T1 compression fracture (T1 fx old per patient). CTA head/neck - no acute intracranial abnormalities and no stenosis. LP: 1RBC/1WBC, 50% neutrophils, 50% lymphocytes. Normal glucose and protein. CSF culture negative to date. BCx positive for Staph hominis that is pansensitive felt to be a contaminate Neurology following and appreciate their input. WBC better. Continue antibacterial and antiviral therapy while we await culture results. Follow white count. Will monitor his clinical improvement with this treatment. Repeat CXR. (2) Leukocytosis: Code(s): D72.829 - Elevated white blood cell count, unspecified Status: Acute Assessment and Plan: CXR was clear. UA was clear. BCx noted and felt to be contaminate. On abx so not worth repeating. Concern for meningitis so LP performed and started on abx WBC climbed due to steroids but better now Repeat CXR As above (3) Bacteremia: Code(s): R78.81 - Bacteremia Status: Acute Assessment and Plan: As above [place] to be contaminant. (4) T1 vertebral fracture: Code(s): S22.019A - Unspecified fracture of first thoracic vertebra, initial encounter for closed fracture Status: Acute Plan DVT prophylaxis -Lovenox Code status - Full Subjective Date/time seen: 03/08/23 09:25 Interval history: 82yo healthy male who presents with neck pain.?? Slept on his side last night and devloped worsening neck pain today. pain paracervical and feels similar to neck pain on admission but not as severe (but still require dose of morphine). Patient states T1 fracture is old and occurred after a fall. Exam Narrative: AF 97.6 132/75 78 20 93% ra Gen - NARD Neck - paracervical tenderness to palpation Chest - right base inspiratory crackles CV - RRR S1/S2 Abd - soft. NT/ND. +BS Ext - no pedal edema. Psych - normal mood and affect. Skin - warm and dry. Objective Data Vital Signs Vital Signs: Vital Signs - 24 hr 03/07/23 14:00 03/07/23 20:08 03/08/23 03:01 Temperature 97.8 F 98.6 F 97.6 F Pulse Rate 66 74 78 Respiratory Rate 16 18 20 Blood Pressure 133/74 129/68 132/75 Pulse Oximetry 98 95 93 Intake/Output Intake/Output: Intake & Output 03/05/23 03/06/23 03/07/23 03/08/23 23:59 23:59 23:59 23:59 Intake Total 3275.9 4385.9 3085.9 1305.3 Output Total 400 600 400 Balance 2875.9 4385.9 2485.9 905.3 Meds/Results Medications: Active Medications Generic Name Dose Route Start Last Admin Trade Name Freq PRN Reason Stop Dose Admin Enoxaparin Sodium 40 mg 03/05/23 10:10 03/08/23 08:53 Enoxaparin 40 Mg/0.4 Ml Syringe SUB-Q 40 mg DAILY BRANDON Administration Ceftriaxone Sodium 2 gm in 100 mls @ 200 mls/hr 03/05/23 14:00 03/08/23 02:19 Rocephin 2 Gm/Ns 100 Ml IVPB Infused Q12H BRANDON Infusion Ampicillin Sodium 2 gm in 100 mls @ 200 mls/hr 03/05/23 05:00 03/08/23 08:53 Ampicillin 2 Gm/Ns 100 Ml IVPB 200 mls/hr Q4HR BRANDON Administration Acyclovir Sodium 765 mg/ 265.3 mls @ 250 mls/hr 03/05/23 09:00 03/08/23 01:36 Dextrose IVPB Infused Q8H BRANDON Infusion Vancomycin HCl 1,500 mg in 500 mls @ 250 mls/hr 03/07/23 03:00 03/08/23 00:04 Vancomycin 1,500 Mg/Ns 500 Ml IVPB Infused Q18H BRANDON Infusion Morphine Sulfate 2 mg 03/05/23 01:41 03/08/23 03:46 Morphine Sulfate
[2023-03-08 11:53] LABS: Cryptococcus Antigen Not Detected (Not Detected); Cryptococcus Specimen Source CSF
[2023-03-08 12:17] LABS: Herpes Simplex Type 1 DNA PCR Not Detected (Not Detected); Herpes Simplex Type 2 DNA PCR Not Detected (Not Detected)
[2023-03-08 13:51] VITALS: BP 127/66; PULSE 76; RESP 16; TEMP 36.7; O2SAT 98
[2023-03-08 14:29] LABS: Vancomycin Trough 13.6 ug/mL (10.0-20.0)
[2023-03-08] MEDS: VANCOMYCIN 1,750 MG/NS 500 ML 1,750 MG/500 ML BAG 250 MG IVPB (16:15)
[2023-03-08 18:29] LABS: Epstein Barr Virus DNA PCR Not Detected (Not Detected); Source Epstein Barr Virus CSF
[2023-03-08 20:58] VITALS: BP 151/77; PULSE 70; RESP 18; TEMP 36.5; O2SAT 98
[2023-03-08 23:32] LABS: Source CSF
[2023-03-09] MEDS: AMPICILLIN 2 GM/NS 100 ML 2 GM/100 ML BAG IVPB ×4 (01:44→13:35)
[2023-03-09] MEDS: cefTRIAXone 2 GM/NS 100 ML 2 GM/100 ML BAG IVPB ×2 (02:14→15:22)
[2023-03-09 03:04] VITALS: BP 146/79; PULSE 73; RESP 18; TEMP 36.3; O2SAT 93
[2023-03-09 05:53] LABS: Basophils Percent Auto 0.3 % (0.2-1.2); Eosinophils Absolute Auto 0.1 K/mm3 (0-0.3); Hematocrit 47.6 % (42.0-52.0); Hemoglobin 15.1 g/dL (14.0-18.0); Immature Granulocyte Absolute 0.09 K/mm3 (0.00-0.031); Immature Granulocyte Percent A 0.7 % (0-0.5); Lymphocytes Absolute Auto 1.04 K/mm3 (0.9-3.2); Lymphocytes Percent Auto 8.4 % (18.3-44.2); Mean Corpuscular HGB Conc 31.7 g/dl (32-36); Mean Corpuscular Hemoglobin 28.5 pg (26-34); Mean Corpuscular Volume 89.8 fl (80-100); Mean Platelet Volume 10.1 fl (7.4-10.4); Monocytes Absolute Auto 1.2 K/mm3 (0.1-0.6); Monocytes Percent Auto 9.8 % (2.6-8.5); Neutrophils Absolute Auto 9.9 K/mm3 (1.3-6.7); Neutrophils Percent Auto 79.8 % (45.5-73.1); Platelet Count Result 572 k/mm3 (150-375); Red Cell Distribution Width 17.2 % (11.5-14.5); White Blood Count 12.4 K/mm3 (4.5-10.0)
[2023-03-09 05:55] LABS: Anion Gap 4 mmol/L (8-16); Blood Urea Nitrogen 13 mg/dL (9-20); Calcium 8.2 mg/dL (8.4-10.2); Carbon Dioxide 28 mmol/L (22-30); Chloride 105 mmol/L (98-107); Estimated CRCL calculation 56 ml/min; Estimated Glomerular Filt Rate > 60; Glucose 98 mg/dL (65-110); Sodium 137 mmol/L (137-145)
[2023-03-09 06:40] LABS: Lyme Disease Ab (IgM), Blot Negative (Negative); Lyme Disease Ab(IgG), Blot Negative (Negative)
--- NOTE | 2023-03-09 06:54 | PM.IMPN ---
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 No fevers documented but he has felt subjectively warm and with chills. CRP mildly elevated at 7. Procalcitonin level is low. White count to 21K on admission. CXR findings noted but exam is clear and his cough has resolved making pneumonia less likely. Cervical spine CT showing severe cervical spondylosis without acute findings and age indeterminate T1 compression fracture (T1 fx old per patient). CTA head/neck - no acute intracranial abnormalities and no stenosis. LP: 1RBC/1WBC, 50% neutrophils, 50% lymphocytes. Normal glucose and protein. CSF culture negative to date. BCx positive for Staph hominis that is pansensitive felt to be a contaminate Neurology following and appreciate their input. WBC better. Continue antibacterial and antiviral therapy while we await culture results. Acyclovir has been discontinued as herpes DNA has came back negative Follow white count. Will monitor his clinical improvement with this treatment. Repeat CXR. WBC count continues to improve down to 12,000 await finaliztion of culture. await neuro recs. discussed with neuro (2) Leukocytosis: Code(s): D72.829 - Elevated white blood cell count, unspecified Status: Acute Assessment and Plan: CXR was clear. UA was clear. BCx noted and felt to be contaminate. On abx so not worth repeating. Concern for meningitis so LP performed and started on abx WBC climbed due to steroids but better now Repeat CXR As above (3) Bacteremia: Code(s): R78.81 - Bacteremia Status: Acute Assessment and Plan: As above [place] to be contaminant. (4) T1 vertebral fracture: Code(s): S22.019A - Unspecified fracture of first thoracic vertebra, initial encounter for closed fracture Status: Acute Assessment and Plan: Reported to be old related to fall in the past Plan DVT prophylaxis -Lovenox Code status - Full Subjective Date/time seen: 03/09/23 06:54 Interval history: 82yo healthy male who presents with neck pain.??Slept on his side last night and developed worsening neck pain. pain paracervical and feels similar to neck pain on admission but not as severe (but still require dose of morphine). Patient states T1 fracture is old and occurred after a fall. he is overall feeling well. wbc count coming down. no fever reproted. no abdominal pain, nausea, vomiting. neck pain has been much better. discussed wiht neurology Review of Systems Review of Systems: All systems reviewed & are unremarkable except as noted in HPI and below Exam Narrative: Gen - NARD Neck - paracervical tenderness to palpation Chest - right base inspiratory crackles CV - RRR S1/S2 Abd - soft. NT/ND. +BS Ext - no pedal edema. Psych - normal mood and affect. Skin - warm and dry. Objective Data Vital Signs Vital Signs: Vital Signs - 24 hr 03/08/23 08:00 03/08/23 13:51 03/08/23 20:58 Temperature 98.1 F 97.7 F Pulse Rate 76 70 Respiratory Rate 16 18 Blood Pressure 127/66 151/77 H Pulse Oximetry 98 98 Oxygen Delivery Room Air 03/09/23 03:04 Temperature 97.4 F L Pulse Rate 73 Respiratory Rate 18 Blood Pressure 146/79 H Pulse Oximetry 93 Oxygen Delivery Intake/Output Intake/Output: Intake & Output 03/06/23 03/07/23 03/08/23 03/09/23 23:59 23:59 23:59 23:59 Intake Total 4385.9 3085.9 3730.6 300 Output Total 600 400 Balance 4385.9 2485.9 3330.6 300 Meds/Results Medications: Active Medications Generic Name Dose Route Start Last Admin Trade Name Freq PRN Reason Stop Dose Admin Enoxaparin Sodium 40 mg 03/05/23 10:10 03/08/23 08:53 Enoxaparin 40 Mg/0.4 Ml Syringe SUB-Q 40 mg DAILY BRANDON Administration Ceftriaxone [place]
[2023-03-09] MEDS: VITAMIN B COMPLEX CAPSULE 1 CAP PO (08:31)
[2023-03-09] MEDS: ENOXAPARIN 40 MG/0.4 ML SYRINGE SUB-Q (08:31)
[2023-03-09] MEDS: MULTIVITAMINS THERAPEUTIC TAB (*BKC) 1 TABLET PO (08:31)
[2023-03-09] MEDS: SACCHAROMYCES BOULARDII 250 MG CAPSULE PO ×3 (08:31→18:07)
[2023-03-09] MEDS: VANCOMYCIN 1,750 MG/NS 500 ML 1,750 MG/500 ML BAG 250 MG IVPB (10:29)
--- NOTE | 2023-03-09 11:47 | WPDNEUROPN ---
Subjective Date/time seen: 03/09/23 11:47 Interval history: 82 years old right-handed male seen initially by Dr. France for the question regarding meningismus with complaints of neck pain and stiffness along with the occipital headache his spinal fluid studies were normal but he was covered with the anti meningitis treatment along with the acyclovir his lab at this stage is improving BMP is normal, UA is normal spinal fluid is normal with negative cultures. Cervical spine CT scan revealed significant severe cervical spondylosis and head and neck CTA was completely normal considering that he can be taken of all the antibiotics and can be discharged with instruction for the p.r.n. pain medication for the severe cervical spondylosis. Objective Data Vital Signs Vital Signs: Vital Signs - 24 hr 03/08/23 13:51 03/08/23 20:58 03/09/23 03:04 Temperature 36.7 C 36.5 C 36.3 C L Pulse Rate 76 70 73 Respiratory Rate 16 18 18 Blood Pressure 127/66 151/77 H 146/79 H Pulse Oximetry 98 98 93 Oxygen Delivery 03/09/23 08:00 Temperature Pulse Rate Respiratory Rate Blood Pressure Pulse Oximetry Oxygen Delivery Room Air Intake/Output Intake/Output: Intake & Output 03/06/23 03/07/23 03/08/23 03/09/23 23:59 23:59 23:59 23:59 Intake Total 4385.9 3085.9 3730.6 640 Output Total 600 400 Balance 4385.9 2485.9 3330.6 640 Meds/Results Medications: Active Medications Generic Name Dose Route Start Last Admin Trade Name Freq PRN Reason Stop Dose Admin Enoxaparin Sodium 40 mg 03/05/23 10:10 03/09/23 08:31 Enoxaparin 40 Mg/0.4 Ml Syringe SUB-Q 40 mg DAILY BRANDON Administration Ceftriaxone Sodium 2 gm in 100 mls @ 200 mls/hr 03/05/23 14:00 03/09/23 02:44 Rocephin 2 Gm/Ns 100 Ml IVPB Infused Q12H BRANDON Infusion Ampicillin Sodium 2 gm in 100 mls @ 200 mls/hr 03/05/23 05:00 03/09/23 09:01 Ampicillin 2 Gm/Ns 100 Ml IVPB Infused Q4HR BRANDON Infusion Vancomycin HCl 1,750 mg in 500 mls @ 250 mls/hr 03/08/23 16:00 03/09/23 10:29 Vancomycin 1,750 Mg/Ns 500 Ml IVPB 250 mls/hr Q18H BRANDON Administration Morphine Sulfate 2 mg 03/05/23 01:41 03/08/23 03:46 Morphine Sulfate (*Crx) 2 Mg/Ml Inj IV PUSH 2 mg Q2H PRN Administration Pain Rated 7-10 Multivitamins Therapeutic 1 tablet 03/05/23 10:10 03/09/23 08:31 Multivitamins Therapeutic Tab (*Bkc) PO 1 tablet DAILY BRANDON Administration Saccharomyces Boulardii 250 mg 03/08/23 09:00 03/09/23 08:31 Saccharomyces Boulardii 250 Mg Capsule PO 250 mg TID BRANDON Administration Vitamin B Complex 1 cap 03/05/23 10:10 03/09/23 08:31 Vitamin B Complex Capsule PO 1 cap DAILY BRANDON Administration Radiology Results: ITS Impressions Head/Neck CTA 03/04/23 21:53 IMPRESSION: 1. No acute intracranial abnormality. Normal head CTA. 2. 0% stenosis of the proximal right internal carotid artery relative to normal distal artery lumen diameter (NASCET criteria). 3. 0% stenosis of the proximal left internal carotid artery relative to normal distal artery lumen diameter. Cervical Spine CT 03/04/23 22:04 IMPRESSION: 1. Severe cervical spondylosis without acute findings of the cervical spine. 2. Age indeterminate T1 compression fracture. Chest X-Ray 03/08/23 13:29 Impression: 1: Bibasilar atelectasis. 2: Possible small pleural effusion. Labs Labs: Laboratory Results - last 24 hr 03/05/23 03/05/23 03/08/23 00:45 04:45 14:03 WBC RBC Hgb Hct MCV MCH MCHC RDW Plt Count MPV Immature Gran % (Auto) Neut % (Auto) Lymph % (Auto) [place] % (Auto) Eos % (Auto) Baso % (Auto) Lymph # (Auto) [place] # (Auto) Eos # (Auto) Baso # (Auto) Abs Immat Gran (auto) Absolute Neuts (auto) Absolute Nucleated RBC Nucleated RBC % Sodium Potassium Chloride Carbon Dioxide Anion Gap BUN Creatinine Estim Creat Clear Calc
[2023-03-09 14:04] LABS: VDRL Quantitative CSF Nonreactive (Nonreactive)
[2023-03-09 15:20] VITALS: BP 155/81; PULSE 72; RESP 16; TEMP 36.4; O2SAT 100
[2023-03-09 20:00] VITALS: PULSE 70; RESP 18; O2SAT 92
[2023-03-09 20:22] VITALS: BP 108/47; PULSE 70; RESP 18; TEMP 36.9; O2SAT 92
[2023-03-10 05:45] VITALS: BP 136/77; PULSE 66; RESP 20; TEMP 37.1; O2SAT 94
[2023-03-10 06:18] LABS: Basophils Absolute Auto 0.1 K/mm3 (0.0-0.1); Basophils Percent Auto 0.5 % (0.2-1.2); Eosinophils Absolute Auto 0.3 K/mm3 (0-0.3); Eosinophils Percent Auto 2.2 % (0-4.4); Hematocrit 50.1 % (42.0-52.0); Hemoglobin 15.4 g/dL (14.0-18.0); Immature Granulocyte Absolute 0.11 K/mm3 (0.00-0.031); Immature Granulocyte Percent A 0.9 % (0-0.5); Lymphocytes Percent Auto 7.4 % (18.3-44.2); Mean Corpuscular HGB Conc 30.7 g/dl (32-36); Mean Corpuscular Hemoglobin 27.8 pg (26-34); Mean Corpuscular Volume 90.6 fl (80-100); Mean Platelet Volume 10.1 fl (7.4-10.4); Monocytes Percent Auto 8.4 % (2.6-8.5); Neutrophils Absolute Auto 9.8 K/mm3 (1.3-6.7); Neutrophils Percent Auto 80.6 % (45.5-73.1); Platelet Count Result 615 k/mm3 (150-375); Red Blood Count 5.53 M/mm3 (4.6-6.20); Red Cell Distribution Width 17.5 % (11.5-14.5); White Blood Count 12.2 K/mm3 (4.5-10.0)
[2023-03-10 06:36] LABS: Alanine Aminotransferase 24 U/L (6-50); Albumin Level 3.2 g/dL (3.5-5.1); Alkaline Phosphatase 71 U/L (38-126); Anion Gap 4 mmol/L (8-16); Aspartate Amino Transferase 25 U/L (17-59); Bilirubin,Total 0.5 mg/dL (0.2-1.3); Blood Urea Nitrogen 16 mg/dL (9-20); Calcium 8.6 mg/dL (8.4-10.2); Carbon Dioxide 30 mmol/L (22-30); Chloride 103 mmol/L (98-107); Estimated CRCL calculation 51 ml/min; Estimated Glomerular Filt Rate > 60; Glucose 99 mg/dL (65-110); Magnesium 2.2 mg/dL (1.6-2.3); Potassium 4.3 mmol/L (3.4-5.0); Sodium 137 mmol/L (137-145)
[2023-03-10] MEDS: VITAMIN B COMPLEX CAPSULE 1 CAP PO (08:28)
[2023-03-10] MEDS: ENOXAPARIN 40 MG/0.4 ML SYRINGE SUB-Q (08:28)
[2023-03-10] MEDS: MULTIVITAMINS THERAPEUTIC TAB (*BKC) 1 TABLET PO (08:28)
[2023-03-10] MEDS: SACCHAROMYCES BOULARDII 250 MG CAPSULE PO ×2 (08:28→12:17)
[2023-03-10 08:32] VITALS: O2SAT 97
--- NOTE | 2023-03-10 13:31 | PM.DS ---
DS: Admitting Diagnosis Discharge Date 03/10/23 Admitting Diagnosis Neck pain DS: Discharge Diagnosis Discharge Diagnosis (1) T1 vertebral fracture: Code(s): S22.019A - Unspecified fracture of first thoracic vertebra, initial encounter for closed fracture Status: Acute Plan Neck pain DS: Summary Hospital Course Hospital Course: A healthy and independent 82-year-old male with no prior past medical history presents with worsening neck pain over a week. It started along the collar line of his posterior neck. CT cervical spine without contrast demonstrating severe cervical spondylosis without acute findings of cervical spine and an age indeterminate T1 compression fracture. Patient reports this is old. Patient presented because the pain became so severe that he cannot move his neck. However it was relieved when he placed pressure with his finger. Patient receive Solu-Medrol EN route. His WBC count increased to 20 and subsequently trended down to 12.2 K on day of discharge. CRP mildly elevated and down trended by admission and procalcitonin 0.2. Ultimately the patient underwent LP and Neurology was consulted. Un concerning for meningitis and is advised to return home with light stretches of the neck and Tylenol p.r.n.. CSF culture without growth. Over the course of his stay his pain did resolve to almost 0 without further intervention. He did receive acyclovir, ampicillin, vancomycin, and ceftriaxone. Of note, 1 bottle out of 2 blood culture growing Staph hominis likely contaminant. He has repeat pending and will be followed. Repeat CBC in 2 days to ensure no complication with white count. Patient is amenable to this plan and return home and knows to report to PCP or ER if has return of severe pain, change in vision, headache, fever, or altered mental status, or new symptoms. The patient was full code during his admission. Time Spent with Patient Time attestation: Total time spent providing and/or coordinating discharge services: Exam Const: General: cooperative and no acute distress Resp: Effort & Inspection: normal respiratory effort Auscultation: clear to auscultation bilaterally Cardio: Rate: regular rate Rhythm: regular rhythm Heart sounds: S1 normal heart sound present and S2 normal heart sound present GI: GI Palp: No abdominal tenderness Auscultation: normal bowel sounds DS: Data Data Completed and Pending Labs on day of discharge: Labs from last 24 hours 03/10/23 03/05/23 05:14 00:45 WBC 12.2 H RBC 5.53 Hgb 15.4 Hct 50.1 MCV 90.6 MCH 27.8 MCHC 30.7 L RDW 17.5 H Plt Count 615 H MPV 10.1 Immature Gran % (Auto) 0.9 H Neut % (Auto) 80.6 H Lymph % (Auto) 7.4 L [place] % (Auto) 8.4 Eos % (Auto) 2.2 Baso % (Auto) 0.5 Lymph # (Auto) 0.90 [place] # (Auto) 1.0 H Eos # (Auto) 0.3 Baso # (Auto) 0.1 Abs Immat Gran (auto) 0.11 H Absolute Neuts (auto) 9.8 H Absolute Nucleated RBC 0.0 Nucleated RBC % 0.0 Sodium 137 Potassium 4.3 Chloride 103 Carbon Dioxide 30 Anion Gap 4 L BUN 16 Creatinine 1.00 Estim Creat Clear Calc 51 Estimated GFR > 60 Glucose 99 Calcium 8.6 Magnesium 2.2 Total Bilirubin 0.5 AST 25 ALT 24 Alkaline Phosphatase 71 Total Protein 6.0 L Albumin 3.2 L CSF VDRL Nonreactive Preliminary micro results at discharge 03/05/23 00:45 Acid Fast Bacilli Culture - Preliminary Cerebral Spinal Fluid 03/04/23 20:36 Blood Culture - Preliminary Blood Staphylococcus hominis Discharge Plan Discharge Attending physician on discharge: Jennifer Arreola Consulting providers: Nida France Discharging Clinician: Jennifer Arreola Patient Disposition: Home, Self-Care Activity: june shower Diet: regular Stand Alone Forms: General Discharge Information Follow-up/Referrals: Charisse,Felicia Awan NP [Primary Care Provider] - 1 Week Discharge Medications: Continued mu
--- NOTE | 2023-03-10 13:51 | PCCCNOTE ---
On 03/10/23, the student, [Cora Lord], provided care and completed [facility] documentation on this patient. I have reviewed the student's documentation and agree with the findings.
== END 2023-03-10 14:45 | disposition home or self-care (01) | DRG 93 ==
LOC: ANHED 03-05 01:40 → ANH2MED 03-05 03:19
PROVIDERS: Internal Medicine; Admitting Provider Internal Medicine; Emergency Provider Student in an Organized Health Care Education/Training Program; PCP Nurse Practitioner; Visit Provider General Practice
DX: R29.1 Meningismus (principal); D72.829 Elevated white blood cell count, unspecified; M47.812 Spondylosis without myelopathy or radiculopathy, cervical region; Z20.822 Contact with and (suspected) exposure to COVID-19; Z87.81 Personal history of (healed) traumatic fracture
CPT/HCPCS: 36415; 62270; 70496; 70498; 71045; 71046; 72125; 80048; 80053; 80202; 81003; 82550; 82565; 82945; 83605; 83735; 84145; 84157; 84443; 84484; 85025; 85027; 85610; 85730; 86140; 86403; 86592; 86617; 87015; 87040; 87070; 87077; 87102; 87116; 87186; 87205; 87206; 87255; 87529; 87637; 87798; 89051; 93005; 94640; 96361; 96365; 96367; 96368; 96375; 99285; A9270; G0378; J0133; J0290; J0696; J1100; J1650; J2270; J3370; J7030; J7040; J7060; Q9967

== ENCOUNTER 2023-03-12 10:24 | Outpatient (CLI) | payer BC, SELFPAY ==
[2023-03-12 10:37] LABS: Basophils Absolute Auto 0.1 K/mm3 (0.0-0.1); Basophils Percent Auto 0.4 % (0.2-1.2); Eosinophils Absolute Auto 0.2 K/mm3 (0-0.3); Eosinophils Percent Auto 1.9 % (0-4.4); Hematocrit 51.1 % (42.0-52.0); Hemoglobin 15.9 g/dL (14.0-18.0); Immature Granulocyte Absolute 0.11 K/mm3 (0.00-0.031); Lymphocytes Absolute Auto 0.89 K/mm3 (0.9-3.2); Lymphocytes Percent Auto 7.9 % (18.3-44.2); Mean Corpuscular HGB Conc 31.1 g/dl (32-36); Mean Corpuscular Hemoglobin 28.4 pg (26-34); Mean Corpuscular Volume 91.4 fl (80-100); Mean Platelet Volume 9.6 fl (7.4-10.4); Monocytes Percent Auto 8.5 % (2.6-8.5); Neutrophils Percent Auto 80.3 % (45.5-73.1); Platelet Count Result 651 k/mm3 (150-375); Red Blood Count 5.59 M/mm3 (4.6-6.20); Red Cell Distribution Width 17.9 % (11.5-14.5); White Blood Count 11.2 K/mm3 (4.5-10.0)
== END 2023-03-12 10:25 | disposition home or self-care (01) ==
LOC: ANHLAB 10:26
PROVIDERS: PCP Nurse Practitioner; Visit Provider General Practice
DX: D72.829 Elevated white blood cell count, unspecified (principal)
CPT/HCPCS: 36415; 85025